=== PATIENT | female | born 1980 | race Two or more races ===

== ENCOUNTER 2024-06-30 14:48 | Outpatient (AMB) | payer BC, SELFPAY ==
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
[2024-06-30 15:06] VITALS: BP 140/82; PULSE 76; O2SAT 99; BMI 26.6
== END 2024-06-30 15:42 | disposition home or self-care (01) ==
PROVIDERS: PCP Family Medicine; Visit Provider Student in an Organized Health Care Education/Training Program
DX: M79.7 Fibromyalgia (principal)
CPT/HCPCS: 99203

== ENCOUNTER → 2024-06-30 14:48 | Outpatient (BNVA) | payer BC, SELFPAY | PROVIDERS: PCP Family Medicine; Visit Provider Student in an Organized Health Care Education/Training Program ==